=== PATIENT | male | born 1985 ===

== ENCOUNTER 2017-02-10 12:39 | Emergency (ER) | payer SELFPAY ==
[2017-02-10] MEDS ORDERED: diPHENhydraMINE IV* 50 MG/ML 1 ml VIAL (BENADRYL) IM ONE (13:01)
--- NOTE | 2017-02-10 13:31 | UC ---
Substance Abuse HPI - HPI Summary HPI Summary: substance abuse addiction to josé miguel last use was last night c/o left side facial swelling, sore throat, shortness of breath very anxious no cough, no fever, no chest pain - History Of Current Complaint Chief Complaint: UCGeneralIllness Stated Complaint: FACIAL SWELLING/DIFF BREATHING Time Seen by Provider: 02/10/17 12:42 Hx Obtained From: Patient ?: No Onset Of Abuse Is Stated In: Years Timing Of Abuse: Daily Severity Initially: Severe Severity Currently: Severe Character: Fearful, Anxious, Frustrated Aggravating Factor(s): Nothing Alleviating Factor(s): Nothing Associated Signs And Symptoms: Positive: Sleep Disturbance, Palpitations, Shortness Of Breath, Tremulous, Agitated. Negative: Hostile, Confused, Hallucinating, Paranoid Behavior, Appetite Change, Social Withdrawal, Social Isolation, Chest Pain, Delirium Tremors, Diaphoretic, Nausea, Vomiting, Diarrhea - Risk Factor(s) Completed Suicide Risk Factors: Negative - Allergies/Home Medications Allergies/Adverse Reactions: Allergies Allergy/AdvReac Type Severity Reaction Status Date / Time No Known Allergies Allergy Verified 02/10/17 12:41 Home Medications: Home Medications NK [No Home Medications Reported] 02/10/17 [History Confirmed 02/10/17] PMH/Surg Hx/FS Hx/Imm Hx Previously Healthy: Yes - Surgical History Surgical History: None - Family History Known Family History: Negative: Diabetes - Social History Alcohol Use: None Substance Use Type: Other Substance Use Comment - Amount & Last Used: José Miguel- last used last night. Smoking Status (MU): Heavy Every Day Tobacco Smoker Type: Cigarettes Amount Used/How Often: 2 packs daily Review of Systems Constitutional: Negative Skin: Negative Eyes: Negative ENT: Sore Throat Respiratory: Shortness Of Breath Cardiovascular: Negative Is Patient Immunocompromised?: No All Other Systems Reviewed And Are Negative: Yes Physical Exam Triage Information Reviewed: Yes Appearance: Ill-Appearing, Pain Distress, Other: - very anxious , constant movements Vital Signs: Initial Vital Signs Temp 99.2 F 02/10/17 12:49 Pulse 114 02/10/17 12:49 Resp 22 02/10/17 12:49 BP 131/79 02/10/17 12:49 Pulse Ox 97 02/10/17 12:49 Vital Signs Reviewed: Yes Eyes: Positive: Conjunctiva Clear ENT: Positive: Normal ENT inspection, Hearing grossly normal, Pharyngeal erythema, Other: - left side facial swelling Neck: Positive: Supple, Nontender, No Lymphadenopathy Respiratory: Positive: Chest non-tender, Lungs clear, Normal breath sounds Cardiovascular: Positive: Tachycardia Abdominal Exam: Normal Abdomen Description: Positive: Nontender, Soft Bowel Sounds: Positive: Present Neurological: Positive: Alert Skin Exam: Normal UC Physical Exam Vital Signs On Initial Exam: Initial Vitals Temp Pulse Resp BP Pulse Ox 99.2 F 114 22 131/79 97 02/10/17 12:49 02/10/17 12:49 02/10/17 12:49 02/10/17 12:49 02/10/17 12:49 - Psychiatric Exam Psychiatric: Anxious Mood: Agitated, Anxious Appearance: Depressed, Anxious Thought Process: Logical Memory: Intact Judgement: Normal Patient Medically Stable for Psych Evaluation/Referral/Trans: Yes Substance Abuse Course/Dx - Differential Dx/Diagnosis Clinic Physician Diagnoses: drug use. agitiation. left side facial swelling Discharge - Discharge Plan Condition: Fair Disposition: TRANS HIGHER LVL OF CARE FAC
[2017-02-10 13:41] VITALS: BP 145/81
== END 2017-02-10 13:42 | disposition short-term general hospital (02) ==
LOC: UCCORT 12:39
DX: F16.90 Hallucinogen use, unspecified, uncomplicated (principal); R45.1 Restlessness and agitation; R22.0 Localized swelling, mass and lump, head; F17.210 Nicotine dependence, cigarettes, uncomplicated
CPT/HCPCS: 93005; 96372; 99213; G0463; J1200